=== PATIENT | female | born 1955 | race Caucasian/White ===

== ENCOUNTER 2023-03-07 11:06 | Emergency (ER) | payer MEDICARE, SELFPAY ==
[2023-03-07] VITALS (15 sets, daily range): BP systolic 149–209; BP diastolic 70–93; PULSE 64–78; RESP 7–31; TEMP 37.1; O2SAT 92–99; BMI 22.3
--- NOTE | 2023-03-07 11:10 | DI.US.S_ITS ---
PROCEDURE: US PERIPH VENOUS LOW EXTREM LT INDICATIONS: PAIN TECHNIQUE: Real-time imaging, as well as color and pulse Doppler interrogation, were performed of the lower extremity deep veins from the inguinal ligament to the popliteal fossa, with documentation of the visualized calf veins. COMPARISON: [facility], US, US VENOUS LOWER EXTREMITY DOPPLER LEFT, 04/11/2020, 17:54. FINDINGS: The common femoral, femoral, popliteal, and the visualized calf veins are normally compressible, and free of intraluminal thrombus. Color and pulse Doppler demonstrate normal phasic intraluminal flow. There is normal augmentation response to distal compression maneuver. Trace soft tissue edema can be seen involving the medial ankle. IMPRESSION: No findings of lower extremity deep venous thrombosis. Dictated by: Artemio Whiting M.D. on 03/07/2023 at 12:06 Approved by: Artemio Whiting M.D. on 03/07/2023 at 12:07
--- NOTE | 2023-03-07 12:01 | ED.EXTPRO ---
HPI - Extremity Problem <Rodney Saldaañ PA-C - Last Filed: 03/07/23 16:06> General Chief complaint: Extremity Problem,Nontraumatic Stated complaint: poss blood clot in L/foot Time Seen by Provider: 03/07/23 12:00 Source: patient Mode of arrival: Ambulatory History of Present Illness HPI Narrative: This is a 67-year-old female presents emergency department due to slightly increased pain and tightness of the left foot. She states she has ?no arterial blood flow? after 9 vascular surgeries with the last 1 being last year. She was not recall any acute injuries to the foot but did go to a walk-in clinic yesterday where they did an x-ray which showed no acute fractures. Patient does not take blood thinners. Denies any fevers, shortness of breath, chest pain, or other systemic symptoms. Related Data Home Medications Medication Instructions Recorded Confirmed chlorthalidone 25 mg tablet 25 mg PO DAILY 03/07/23 03/07/23 dextroamphetamine-amphetamine 10 1 tab PO BID 03/07/23 03/07/23 mg tablet gabapentin 600 mg tablet See Rx Instructions .Route .COMPLEX 03/07/23 03/07/23 hydrocodone 10 mg-acetaminophen 1 tab PO Q4H PRN severe pain 03/07/23 03/07/23 325 mg tablet levothyroxine 125 mcg tablet 125 mcg PO DAILY 03/07/23 03/07/23 Allergies Allergy/AdvReac Type Severity Reaction Status Date / Time Iodinated Contrast Media Allergy Anaphylaxis Verified 03/07/23 11:26 tomato Allergy Anaphylaxis Verified 03/07/23 11:26 Review of Systems <Rodney Saldaña PA-C - Last Filed: 03/07/23 16:06> Review of Systems Narrative: GENERAL: Denies chills, fatigue, malaise, fever, sweats. HEENT: Denies sinus pain, ear pain, sore throat, difficulty swallowing, dizziness. RESPIRATORY: Denies dyspnea, cough, wheezing, hemoptysis, sputum. CARDIOVASCULAR: Denies chest pain, palpitations, orthopnea, edema, GASTROINTESTINAL: Denies nausea, vomiting, abdominal pain, diarrhea, constipation, melena. : Denies dysuria, frequency, incontinence, hematuria, urinary retention. MUSCULOSKELETAL: Reports left foot pain, otherwise denies weakness, joint pain, or bony pain SKIN: Denies rash, skin lesions, or other NEUROLOGIC: Denies weakness, headache, numbness, change in speech, confusion, seizures, incoordination. PSYCHIATRIC: No concerning psychosocial issues. 12 point review of systems is negative except for those stated above Patient History <Rodney Saldaña PA-C - Last Filed: 03/07/23 16:06> Social History Smoking Status: Former smoker Smoking Status: Former smoker Substance Use Type: marijuana Exam <MILTON Romero Last Filed: 03/07/23 16:06> Narrative Exam Narrative: GENERAL: Well-developed patient, in mild distress. HEAD: Atraumatic. Normocephalic. EYES: Pupils equal round and reactive. Extraocular motions intact. No scleral icterus. No injection or drainage. ENT: Nose without bleeding, purulent drainage. Throat without erythema, tonsillar hypertrophy or exudate. Airway patent. NECK: Trachea midline. Non tender EXTREMITIES: Left foot is cool to the touch, palpable posterior tibialis pulse, unable to palpate dorsalis pedis pulse all as patient states that this is normal for her. Cap refill present although takes approximately 4 seconds. There does appear to be a small wound to the dorsal aspect of the foot with a small amount of purulent discharge BACK: Nontender without deformity or crepitance. No flank tenderness. NEURO: AOx3. SKIN: No rash or erythema of visible areas Initial Vital Signs Initial Vital Signs: Vital Signs Temperature 98.8 F 03/07/23 11:27 Pulse Rate 77 03/07/23 11:27 Respiratory Rate 17 03/07/23 11:27 Blood Pressure 194/86 H 03/07/23 11:27 Pulse Oximetry 97 03/07/23 11:27 Oxygen Delivery Method Room Air 03/07/23 11:27 <Cali Gordon DO - Last Filed: 03/07/23 16:09> Initial Vital Signs Initial Vital Signs: Vital Signs Temperature 98.8 F 03/07/23 11:27 Pulse Rate 77 03/07/23 11:27 Respiratory Rate 17 03/07/23 11:27 Blood Pressure 194/86 H 03/07/23 11:27 Pulse Oximetry 97 03/07/23 11:27 Oxygen Delivery Method Room Air 03/07/23 11:27 Course <Rodney Saldaña PA-C - Last Filed: 03/07/23 16:06> Orders Ordered: ED Orders 03/07/23 11:10 US periph venous low extrem lt Stat 03/07/23 12:27 US arterial duplex LE LT Stat 03/07/23 12:29 CT angio abd aorta runoff Stat 03/07/23 13:12 CBC Auto Diff [Complete Blood Count AUTO DIFF] Stat CMP [Comprehensive Metabolic Panel] Stat Discontinued Medications Chlorthalidone (Chlorthalidone 25 Mg Tablet) 25 mg PO NOW ONE Stop: 03/07/23 13:59 Last Admin: 03/07/23 14:25 Dose: 25 mg Documented By: BROCK Diphenhydramine HCl (Diphenhydramine 50 Mg/Ml Vial) 50 mg IV NOW ONE Stop: 03/07/23 13:04 Last Admin: 03/07/23 13:19 Dose: 50 mg Documented By: VALENTE Famotidine (Famotidine 20 Mg/2 Ml Vial) 20 mg IV NOW EDMUND Last Admin: 03/07/23 13:20 Dose: 20 mg Documented By: VALENTE Methylprednisolone (Methylprednisolone 125 Mg/2 Ml Vial) 125 mg IV NOW ONE Stop: 03/07/23 13:04 Last Admin: 03/07/23 13:19 Dose: 125 mg Documented By: VALENTE Reevaluation(s) Reevaluation #1: 1230: technical fellow stated that patient was negative for DVT. After arterial ultrasound she stated that the common femoral artery was occluded through the superficial femoral artery and distal. There was blood flow at the popliteal artery and posterior tibialis. Ask the patient about the findings and she stated that the common femoral artery occlusion was chronic for her. Vital Signs Vital signs: Vital Signs - 8 hr 03/07/23 11:27 03/07/23 12:21 03/07/23 12:23 Temperature 98.8 F Pulse Rate 77 69 Pulse Rate [Left Posterior Tibial] 70 Respiratory Rate 17 18 Blood Pressure 194/86 H 180/82 H Pulse Oximetry 97 97 Oxygen Delivery Method Room Air Room Air 03/07/23 12:33 03/07/23 13:00 03/07/23 13:01 Temperature Pulse Rate 67 72 71 Pulse Rate [Left Posterior Tibial] Respiratory Rate 20 31 H 24 Blood Pressure Pulse Oximetry 97 92 98 Oxygen Delivery Method 03/07/23 13:01 03/07/23 13:26 03/07/23 13:26 Temperature Pulse Rate 67 Pulse Rate [Left Posterior Tibial] Respiratory Rate 12 Blood Pressure 149/74 H 197/81 H Pulse Oximetry 98 Oxygen Delivery Method 03/07/23 13:27 03/07/23 13:27 03/07/23 13:30 Temperature Pulse Rate 66 66 Pulse Rate [Left Posterior Tibial] Respiratory Rate 7 L 12 Blood Pressure 203/90 H Pulse Oximetry 99 96 Oxygen Delivery Method 03/07/23 13:30 03/07/23 13:49 03/07/23 13:49 Temperature Pulse Rate 64 Pulse Rate [Left Posterior Tibial] Respiratory Rate 12 Blood Pressure 200/93 H 209/89 H Pulse Oximetry 97 Oxygen Delivery Method 03/07/23 14:23 03/07/23 14:25 03/07/23 14:25 Temperature Pulse Rate 72 70 Pulse Rate [Left Posterior Tibial] Respiratory Rate 23 20 Blood Pressure 195/89 H Pulse Oximetry 92 99 Oxygen Delivery Method 03/07/23 14:30 03/07/23 14:30 03/07/23 15:00 Temperature Pulse Rate 67 70 Pulse Rate [Left Posterior Tibial] Respiratory Rate 18 18 Blood Pressure 196/88 H 182/84 H Pulse Oximetry 98 98 Oxygen Delivery Method Room Air 03/07/23 15:00 03/07/23 15:30 Temperature Pulse Rate 71 78 Pulse Rate [Left Posterior Tibial] Respiratory Rate 20 18 Blood Pressure 180/70 H Pulse Oximetry 94 97 Oxygen Delivery Method Room Air <Cali Gordon DO - Last Filed: 03/07/23 16:09> Orders Ordered: ED Orders 03/07/23 11:10 US periph venous low extrem lt Stat 03/07/23 12:27 US arterial duplex LE LT Stat 03/07/23 12:29 CT angio abd aorta runoff Stat 03/07/23 13:12 CBC Auto Diff [Complete Blood Count AUTO DIFF] Stat CMP [Comprehensive Metabolic Panel] Stat Discontinued Medications Chlorthalidone (Chlorthalidone 25 Mg Tablet) 25 mg PO NOW ONE Stop: 03/07/23 13:59 Last Admin: 03/07/23 14:25 Dose: 25 mg Documented By: RL Diphenhydramine HCl (Diphenhydramine 50 Mg/Ml Vial) 50 mg IV NOW ONE Stop: 03/07/23 13:04 Last Admin: 03/07/23 13:19 Dose: 50 mg Documented By: KB Famotidine (Famotidine 20 Mg/2 Ml Vial) 20 mg IV NOW EDMUND Last Admin: 03/07/23 13:20 Dose: 20 mg Documented By: VALENTE Methylprednisolone (Methylprednisolone 125 Mg/2 Ml Vial) 125 mg IV NOW ONE Stop: 03/07/23 13:04 Last Admin: 03/07/23 13:19 Dose: 125 mg Documented By: VALENTE Vital Signs Vital signs: Vital Signs - 8 hr 03/07/23 11:27 03/07/23 12:21 03/07/23 12:23 Temperature 98.8 F Pulse Rate 77 69 Pulse Rate [Left Posterior Tibial] 70 Respiratory Rate 17 18 Blood Pressure 194/86 H 180/82 H Pulse Oximetry 97 97 Oxygen Delivery Method Room Air Room Air 03/07/23 12:33 03/07/23 13:00 03/07/23 13:01 Temperature Pulse Rate 67 72 71 Pulse Rate [Left Posterior Tibial] Respiratory Rate 20 31 H 24 Blood Pressure Pulse Oximetry 97 92 98 Oxygen Delivery Method 03/07/23 13:01 03/07/23 13:26 03/07/23 13:26 Temperature Pulse Rate 67 Pulse Rate [Left Posterior Tibial] Respiratory Rate 12 Blood Pressure 149/74 H 197/81 H Pulse Oximetry 98 Oxygen Delivery Method 03/07/23 13:27 03/07/23 13:27 03/07/23 13:30 Temperature Pulse Rate 66 66 Pulse Rate [Left Posterior Tibial] Respiratory Rate 7 L 12 Blood Pressure 203/90 H Pulse Oximetry 99 96 Oxygen Delivery Method 03/07/23 13:30 03/07/23 13:49 03/07/23 13:49 Temperature Pulse Rate 64 Pulse Rate [Left Posterior Tibial] Respiratory Rate 12 Blood Pressure 200/93 H 209/89 H Pulse Oximetry 97 Oxygen Delivery Method 03/07/23 14:23 03/07/23 14:25 03/07/23 14:25 Temperature Pulse Rate 72 70 Pulse Rate [Left Posterior Tibial] Respiratory Rate 23 20 Blood Pressure 195/89 H Pulse Oximetry 92 99 Oxygen Delivery Method 03/07/23 14:30 03/07/23 14:30 03/07/23 15:00 Temperature Pulse Rate 67 70 Pulse Rate [Left Posterior Tibial] Respiratory Rate 18 18 Blood Pressure 196/88 H 182/84 H Pulse Oximetry 98 98 Oxygen Delivery Method Room Air 03/07/23 15:00 03/07/23 15:30 Temperature Pulse Rate 71 78 Pulse Rate [Left Posterior Tibial] Respiratory Rate 20 18 Blood Pressure 180/70 H Pulse Oximetry 94 97 Oxygen Delivery Method Room Air MDM - Extremity (Nontraumatic) <Rodney Saldaña PA-C - Last Filed: 03/07/23 16:06> Lab Data 03/07/23 13:12 03/07/23 13:12 Labs: Lab Results 03/07/23 Range/Units 13:12 WBC 9.2 (4.5-11.0) X10^3/uL RBC 4.66 (4.0-5.2) X10^6/uL Hgb 15.3 (12.0-16.0) g/dL Hct 44.3 (36-46) % MCV 95.0 (80-100) fL MCH 32.7 (26-34) PG MCHC 34.5 (30-36) % RDW 12.8 (11.6-14.8) % Plt Count 175 (150-400) X10^3/uL Neut % (Auto) 73.8 (50-75) % Lymph % (Auto) 18.1 L (25-40) % [place] % (Auto) 5.9 (3-14) % Eos % (Auto) 1.7 L (2-4) % Baso % (Auto) 0.5 (0-2) % Neut # (Auto) 6800 (4253-2203) /uL Lymph # (Auto) 1700 (3190-0654) /uL [place] # (Auto) 500 (0-900) /uL Eos # (Auto) 200 (0-450) /uL Baso # (Auto) 0 (0-100) /uL Plt Morphology Comment RBC Morphology Normal morphology Sodium 140 (137-145) mmol/L Potassium 3.6 (3.4-5.1) mmol/L Chloride 99 (98-107) mmol/L Carbon Dioxide 32 (22-32) mmol/L BUN 17 (7-17) mg/dL Creatinine 0.99 (0.52-1.04) mg/dL Estimated GFR > 60 (>60) mL/min BUN/Creatinine Ratio 17.2 (6-22) Glucose 116 H (80-110) mg/dL Calcium 10.2 (8.4-10.2) mg/dL Total Bilirubin 0.4 (0.2-1.3) mg/dL AST 24 (14-36) IU/L ALT 18 (<35) IU/L Alkaline Phosphatase 103 (38-126) U/L Total Protein 8.4 H (6.3-8.2) g/dL Albumin 4.4 (3.5-5.0) g/dL Globulin 4.0 (1.7-4.1) g/dL Albumin/Globulin Ratio 1.1 (1.0-2.8) Imaging Data US - DVT: Radiologist's Impression: [address] [address] Ultrasound Report Signed Patient: Rebecca Valenzuela MR#: [id number] : 1955 Acct:[id number] Age/Sex: 67 / F Date of Service: 03/07/23 Loc: ED Accession Number: [id number] Procedure: US periph venous low extrem lt Ordering Provider: Cali Gordon D.O. PROCEDURE: US PERIPH VENOUS LOW EXTREM LT INDICATIONS: PAIN TECHNIQUE: Real-time imaging, as well as color and pulse Doppler interrogation, were performed of the lower extremity deep veins from the inguinal ligament to the popliteal fossa, with documentation of the visualized calf veins. COMPARISON: [facility], , US VENOUS LOWER EXTREMITY DOPPLER LEFT, 04/11/2020, 17:54. FINDINGS: The common femoral, femoral, popliteal, and the visualized calf veins are normally compressible, and free of intraluminal thrombus. Color and pulse Doppler demonstrate normal phasic intraluminal flow. There is normal augmentation response to distal compression maneuver. Trace soft tissue edema can be seen involving the medial ankle. IMPRESSION: No findings of lower extremity deep venous thrombosis. Dictated by: Artemio Whiting M.D. on 03/07/2023 at 12:06 Approved by: Artemio Whiting M.D. on 03/07/2023 at 12:07 US LE Arterial: Radiologist's Impression: [address] [address] Ultrasound Report Signed Patient: Rebecca Valenzuela MR#: [id number] : 1955 Acct:[id number] Age/Sex: 67 / F Date of Service: 03/07/23 Loc: ED Accession Number: [id number] Procedure: US arterial duplex LE LT Ordering Provider: Rodney Saldaña P.A-C PROCEDURE: US ARTERIAL DUPLEX LE LT INDICATIONS: DECREASED PULSES IN FOOT. TECHNIQUE: Color and pulse Doppler interrogation was performed of the left lower extremity arterial system, with image documentation. COMPARISON: [facility], , US PERIPH VENOUS LOW EXTREM LT, 03/07/2023, 12:16. [facility], , US ARTERIAL LOWER EXTREMITY DOPPLER LEFT, 04/11/2020, 18:07. FINDINGS: Common femoral artery: No flow is seen Deep femoral artery: 41 cm/sec, with monophasic flow. No flow seen throughout the superficial femoral artery. Proximal popliteal artery: 177 cm/sec, with monophasic flow. No flow seen within the distal popliteal artery. Posterior tibial artery: 10 cm/sec, with monophasic flow. Anterior tibial artery/dorsalis pedis: 17 cm/sec, with monophasic flow. Zepeda-scale imaging description: Prominent atherosclerotic change is seen. IMPRESSION: Significant vascular compromise of the left lower extremity, with no flow seen within the common femoral artery, within the superficial femoral artery or within the distal popliteal artery. There is a small amount of flow seen within the profundus femoris artery, as well as within the posterior tibial artery and anterior tibial artery. Please consider interventional radiology consultation. Dictated by: Artemio Whiting M.D. on 03/07/2023 at 12:16 Approved by: Artemio Whiting M.D. on 03/07/2023 at 12:21 CT scan - abdomen/pelvis: Radiologist's Impression: [place] [address] CT Scan Report Signed Patient: Rebecca Valenzuela MR#: [id number] : 1955 Acct:[id number] Age/Sex: 67 / F Date of Service: 03/07/23 Loc: ED Accession Number: [id number] Procedure: CT angio abd aorta runoff Ordering Provider: Rodney Saldaña P.A-C PROCEDURE: CT ANGIO ABD AORTA RUNOFF INDICATIONS: Decreased blood flow to LLE, hx of vascular surgeries TECHNIQUE: After the administration of intravenous contrast, 2.5 mm sections acquired from T12 to the feet, with optional delayed image acquisition from the knees to the feet. 3-dimensional maximum intensity projection (MIP) coronal and sagittal reformats, and/or 3-dimensional volume rendering reformatting was then performed. For radiation dose reduction, the following was used: automated exposure control. The patient was pre-medicated prior to this study. No immediate contrast reaction was experienced. COMPARISON: [facility], [place], US PERIPH VENOUS LOW EXTREM LT, 03/07/2023, 12:16. [facility], [place], US ARTERIAL LOWER EXTREMITY DOPPLER LEFT, 04/11/2020, 18:07. [facility], [place], US ARTERIAL DUPLEX LE LT, 03/07/2023, 12:29. FINDINGS: Image quality: There is artifact associated with the metallic hardware. Extravascular tissues: Lung bases are clear. Heart size is normal. A small hiatal hernia is incidentally noted. Liver is normal in size and enhancement. Gallbladder wall is not thickened. Common bile duct is mildly dilated at 11 mm. . Pancreas enhances normally. Spleen is normal in size and enhancement. No adrenal nodules. Kidneys are normal in size and enhancement, without hydronephrosis. Non opacified bowel loops demonstrate normal wall thickness and enhancement. No free fluid or air. No retroperitoneal or mesenteric adenopathy. No ventral hernias. This patient is status post hysterectomy. No adnexal masses are seen. Bladder wall thickness is normal. No inguinal hernias or adenopathy. No suspicious bony lesions. No vertebral body compression fractures. Left knee arthroplasty hardware is seen. Abdominal aorta: The aorta demonstrates atherosclerotic irregularity, with calcified and soft plaque seen. The distal aorta demonstrates irregular narrowing, with approximately 40% stenosis. Right lower extremity: There is approximately 50% narrowing involving the right proximal common iliac artery. Additional approximately 50% narrowing is seen involving the right mid common iliac artery. Likely 70% stenosis seen involving the proximal right internal iliac artery. The right external iliac artery demonstrates generalized small caliber, with a focus of 70% narrowing within its midportion. The right common femoral artery demonstrates small caliber. The right superficial femoral artery is occluded at its origin. The right profunda femorals artery is patent. Within the distal superficial femoral artery, there is partial reconstitution. Flow seen within the right popliteal artery. There is flow seen at the distal aspects of the right anterior tibial and right posterior tibial arteries. No flow seen within the distal right peroneal artery. Left lower extremity: There is approximately 60% narrowing involving the left proximal common iliac artery. There is at least 70% narrowing involving the left proximal iliac artery. The left external iliac artery demonstrates generalized low caliber, with approximately 80% narrowing distally. The left common femoral artery is occluded. Postoperative change is seen, with an apparent included femoral popliteal graft. No flow seen within the left superficial femoral artery. The left profunda femoris artery is patent. Evaluation of the popliteal artery is limited by streak artifact from the adjacent near the plasty hardware. The proximal popliteal artery appears occluded, with distal popliteal artery reconstitution. Evaluation of the distal left arteries is limited by flow within collaterals forces venous flow. IMPRESSION: Extensive left-sided arterial disease can be seen, with occlusion of the left common femoral artery and the left superficial femoral artery as well as the proximal aspect of left popliteal artery. Multifocal left iliac narrowing can be seen. There is an apparent occluded left femoral-popliteal graft. Aortic irregularity, with approximately 40% narrowing distally. Multifocal iliac system can be seen on the right. The majority of the right superficial femoral artery is occluded, with dorsal reconstitution. 2 vessel runoff is seen on the right. Please consider interventional radiology consultation. Mildly dilated common bile duct at 11 mm. Normal appearing gallbladder. - If clinically appropriate, an MRCP could be considered for further evaluation (assuming that there is no contraindication to MRI). Additional findings: Small hiatal hernia Hysterectomy Left knee arthroplasty hardware Dictated by: Artemio Whiting M.D. on 03/07/2023 at 13:27 Approved by: Artemio Whiting M.D. on 03/07/2023 at 13:38 MDM Narrative Medical decision making narrative: MDM * differential diagnosis includes but not limited to acute ischemic limb, peripheral arterial disease, DVT, cellulitis, foot fracture * Prior records reviewed: Patient has not been to this emergency department in the past * My lab interpretation: CBC and CMP unremarkable. No evidence of acute anemia or leukocytosis. * My imgaing interpretation: CT findings as above with significant vascular compromise to the left lower extremity although appears to be chronic for the patient. CT also showed the majority of the right superficial femoral artery being occluded with dorsal reconstitution. Patient denies any symptoms in the right lower extremity and had palpable pulses. Also stated that there was a mildly dilated common bile duct patient had no abdominal symptoms. No acute findings. Negative for DVT * Clinical Decision Rules/Scores evaluated: None * Independent discussions with: None ED Course: This is a 67-year-old female with a extensive history of peripheral arterial disease presenting to the emergency department due to worsening pain in the left foot. Patient was seen at a walk-in clinic yesterday and had a negative foot x-ray. Patient is not describe the pain being exquisitely out of proportion just states that it has been getting ?a little worse?. Patient has an extensive history of purulent for oral arterial disease in the left undergoing an reported [address] Diamond at vascular. Maintenance ultrasound was negative for DVT. Arterial ultrasound showed the chronic findings that were mentioned above as well as CTA which confirmed this. Patient's finding was discussed with Dr. Diamond's offices on-call provider who recommended close follow-up and reinforced the importance that she takes her aspirin which the patient states that she is been taking intermittently. Patient did not present with any findings that would necessitate an emergent intervention and she will follow up with Dr. Diamond's office for long-term management. There were no open wounds or evidence of infection to the foot low concern for any kind of soft tissue infection. Shared Decision Making: Discussed plan with patient who is comfortable with the plan. Social Considerations: None Disposition: Discharged to home <Cali oGrdon, - Last Filed: 03/07/23 16:09> Lab Data Labs: Lab Results 03/07/23 Range/Units 13:12 WBC 9.2 (4.5-11.0) X10^3/uL RBC 4.66 (4.0-5.2) X10^6/uL Hgb 15.3 (12.0-16.0) g/dL Hct 44.3 (36-46) % MCV 95.0 (80-100) fL MCH 32.7 (26-34) PG MCHC 34.5 (30-36) % RDW 12.8 (11.6-14.8) % Plt Count 175 (150-400) X10^3/uL Neut % (Auto) 73.8 (50-75) % Lymph % (Auto) 18.1 L (25-40) % [place] % (Auto) 5.9 (3-14) % Eos % (Auto) 1.7 L (2-4) % Baso % (Auto) 0.5 (0-2) % Neut # (Auto) 6800 (5313-5732) /uL Lymph # (Auto) 1700 (1818-3924) /uL [place] # (Auto) 500 (0-900) /uL Eos # (Auto) 200 (0-450) /uL Baso # (Auto) 0 (0-100) /uL Plt Morphology Comment RBC Morphology Normal morphology Sodium 140 (137-145) mmol/L Potassium 3.6 (3.4-5.1) mmol/L Chloride 99 (98-107) mmol/L Carbon Dioxide 32 (22-32) mmol/L BUN 17 (7-17) mg/dL Creatinine 0.99 (0.52-1.04) mg/dL Estimated GFR > 60 (>60) mL/min BUN/Creatinine Ratio 17.2 (6-22) Glucose 116 H (80-110) mg/dL Calcium 10.2 (8.4-10.2) mg/dL Total Bilirubin 0.4 (0.2-1.3) mg/dL AST 24 (14-36) IU/L ALT 18 (<35) IU/L Alkaline Phosphatase 103 (38-126) U/L Total Protein 8.4 H (6.3-8.2) g/dL Albumin 4.4 (3.5-5.0) g/dL Globulin 4.0 (1.7-4.1) g/dL Albumin/Globulin Ratio 1.1 (1.0-2.8) Discharge Plan Departure Patient Disposition: Home Clinical Impression: PAD (peripheral artery disease) Activity Restrictions/Additional Instructions: Thank you for coming to the [facility] Emergency Department today. The imaging that we took today was discussed with Dr. Diamond's office. Please call his office on Thursday to arrange for an urgent appointment to be seen and re-evaluated. I strongly recommend you continue taking the aspirin that you have been prescribed. I hope you feel better soon. Please follow up with your primary care provider within a week if your symptoms continue. If you do not have a primary care provider please contact the [facility] Resource line at [phone]. They will ask some questions about your medical history and help you get set up with a provider in the community. Prescriptions: No Action gabapentin 600 mg tablet See Rx Instructions .ROUTE .COMPLEX Rx Instructions: TAKE 1.5 TABLETS BY MOUTH EVERY MORNING, 1 TABLET EVERY AFTERNOON, AND 1.5 TABLETS AT BEDTIME DAILY DOSE CHANGE 09/23/22 NOTE THESE ARE 600MG TABLETS dextroamphetamine-amphetamine 10 mg tablet 1 tab PO BID chlorthalidone 25 mg tablet 25 mg PO DAILY hydrocodone-acetaminophen 10-325 mg tablet 1 tab PO Q4H PRN (Reason: severe pain) levothyroxine 125 mcg tablet 125 mcg PO DAILY Referrals: Khadijah Watts MD [Primary Care Provider] - Stand Alone Forms: Patient Portal/API ED Sign-out <Cali Gordon DO - Last Filed: 03/07/23 16:09> Cosign ED Attending Brigetteature Attestation: I was immediately available in the department for consultation. Documentation has been reviewed. I agree with assessment and plan.
--- NOTE | 2023-03-07 12:27 | DI.US.S_ITS ---
PROCEDURE: US ARTERIAL DUPLEX LE LT INDICATIONS: DECREASED PULSES IN FOOT. TECHNIQUE: Color and pulse Doppler interrogation was performed of the left lower extremity arterial system, with image documentation. COMPARISON: [facility], US, US PERIPH VENOUS LOW EXTREM LT, 03/07/2023, 12:16. [facility], , US ARTERIAL LOWER EXTREMITY DOPPLER LEFT, 04/11/2020, 18:07. FINDINGS: Common femoral artery: No flow is seen Deep femoral artery: 41 cm/sec, with monophasic flow. No flow seen throughout the superficial femoral artery. Proximal popliteal artery: 177 cm/sec, with monophasic flow. No flow seen within the distal popliteal artery. Posterior tibial artery: 10 cm/sec, with monophasic flow. Anterior tibial artery/dorsalis pedis: 17 cm/sec, with monophasic flow. Zepeda-scale imaging description: Prominent atherosclerotic change is seen. IMPRESSION: Significant vascular compromise of the left lower extremity, with no flow seen within the common femoral artery, within the superficial femoral artery or within the distal popliteal artery. There is a small amount of flow seen within the profundus femoris artery, as well as within the posterior tibial artery and anterior tibial artery. Please consider interventional radiology consultation. Dictated by: Artemio Whiting M.D. on 03/07/2023 at 12:16 Approved by: Artemio Whiting M.D. on 03/07/2023 at 12:21
--- NOTE | 2023-03-07 12:29 | DI.CT.S_ITS ---
PROCEDURE: CT ANGIO ABD AORTA RUNOFF INDICATIONS: Decreased blood flow to LLE, hx of vascular surgeries TECHNIQUE: After the administration of intravenous contrast, 2.5 mm sections acquired from T12 to the feet, with optional delayed image acquisition from the knees to the feet. 3-dimensional maximum intensity projection (MIP) coronal and sagittal reformats, and/or 3-dimensional volume rendering reformatting was then performed. For radiation dose reduction, the following was used: automated exposure control. The patient was pre-medicated prior to this study. No immediate contrast reaction was experienced. COMPARISON: [facility], US, US PERIPH VENOUS LOW EXTREM LT, 03/07/2023, 12:16. [facility], US, US ARTERIAL LOWER EXTREMITY DOPPLER LEFT, 04/11/2020, 18:07. [facility], US, US ARTERIAL DUPLEX LE LT, 03/07/2023, 12:29. FINDINGS: Image quality: There is artifact associated with the metallic hardware. Extravascular tissues: Lung bases are clear. Heart size is normal. A small hiatal hernia is incidentally noted. Liver is normal in size and enhancement. Gallbladder wall is not thickened. Common bile duct is mildly dilated at 11 mm. . Pancreas enhances normally. Spleen is normal in size and enhancement. No adrenal nodules. Kidneys are normal in size and enhancement, without hydronephrosis. Non opacified bowel loops demonstrate normal wall thickness and enhancement. No free fluid or air. No retroperitoneal or mesenteric adenopathy. No ventral hernias. This patient is status post hysterectomy. No adnexal masses are seen. Bladder wall thickness is normal. No inguinal hernias or adenopathy. No suspicious bony lesions. No vertebral body compression fractures. Left knee arthroplasty hardware is seen. Abdominal aorta: The aorta demonstrates atherosclerotic irregularity, with calcified and soft plaque seen. The distal aorta demonstrates irregular narrowing, with approximately 40% stenosis. Right lower extremity: There is approximately 50% narrowing involving the right proximal common iliac artery. Additional approximately 50% narrowing is seen involving the right mid common iliac artery. Likely 70% stenosis seen involving the proximal right internal iliac artery. The right external iliac artery demonstrates generalized small caliber, with a focus of 70% narrowing within its midportion. The right common femoral artery demonstrates small caliber. The right superficial femoral artery is occluded at its origin. The right profunda femorals artery is patent. Within the distal superficial femoral artery, there is partial reconstitution. Flow seen within the right popliteal artery. There is flow seen at the distal aspects of the right anterior tibial and right posterior tibial arteries. No flow seen within the distal right peroneal artery. Left lower extremity: There is approximately 60% narrowing involving the left proximal common iliac artery. There is at least 70% narrowing involving the left proximal iliac artery. The left external iliac artery demonstrates generalized low caliber, with approximately 80% narrowing distally. The left common femoral artery is occluded. Postoperative change is seen, with an apparent included femoral popliteal graft. No flow seen within the left superficial femoral artery. The left profunda femoris artery is patent. Evaluation of the popliteal artery is limited by streak artifact from the adjacent near the plasty hardware. The proximal popliteal artery appears occluded, with distal popliteal artery reconstitution. Evaluation of the distal left arteries is limited by flow within collaterals forces venous flow. IMPRESSION: Extensive left-sided arterial disease can be seen, with occlusion of the left common femoral artery and the left superficial femoral artery as well as the proximal aspect of left popliteal artery. Multifocal left iliac narrowing can be seen. There is an apparent occluded left femoral-popliteal graft. Aortic irregularity, with approximately 40% narrowing distally. Multifocal iliac system can be seen on the right. The majority of the right superficial femoral artery is occluded, with dorsal reconstitution. 2 vessel runoff is seen on the right. Please consider interventional radiology consultation. Mildly dilated common bile duct at 11 mm. Normal appearing gallbladder. - If clinically appropriate, an MRCP could be considered for further evaluation (assuming that there is no contraindication to MRI). Additional findings: Small hiatal hernia Hysterectomy Left knee arthroplasty hardware Dictated by: Artemio Whiting M.D. on 03/07/2023 at 13:27 Approved by: Artemio Whiting M.D. on 03/07/2023 at 13:38
[2023-03-07] MEDS: diphenhydrAMINE 50 MG/ML VIAL IV (13:19)
[2023-03-07] MEDS: methylPREDNISolone 125 MG/2 ML VIAL IV (13:19)
[2023-03-07] MEDS: FAMOTIDINE 20 MG/2 ML VIAL IV (13:20)
--- NOTE | 2023-03-07 13:27 | PC.NURSE ---
Pt pre-medicated for CT contrast.
[2023-03-07 13:39] LABS: Neutrophils Absolute Auto 6800 /uL (1500-7000); White Blood Cell Count 9.2 X10^3/uL (4.5-11.0)
[2023-03-07 14:08] LABS: Add Manual Diff / Slide Review SLIDE REVIEW; Basophils Absolute Auto 0 /uL (0-100); Basophils Percent Auto 0.5 % (0-2); Eosinophils Absolute Auto 200 /uL (0-450); Eosinophils Percent Auto 1.7 % (2-4); Hematocrit 44.3 % (36-46); Hemoglobin 15.3 g/dL (12.0-16.0); Lymphocytes Absolute Auto 1700 /uL (1100-4500); Lymphocytes Percent Auto 18.1 % (25-40); Mean Corpuscular HGB Conc 34.5 % (30-36); Mean Corpuscular Hemoglobin 32.7 PG (26-34); Monocytes Absolute Auto 500 /uL (0-900); Monocytes Percent Auto 5.9 % (3-14); Neutrophils Percent Auto 73.8 % (50-75); Platelet Count 175 X10^3/uL (150-400); Red Blood Cell Count 4.66 X10^6/uL (4.0-5.2); Red Cell Distribution Width 12.8 % (11.6-14.8)
[2023-03-07 14:14] LABS: Alanine Aminotransferase 18 IU/L (<35); Albumin 4.4 g/dL (3.5-5.0); Albumin Globulin Ratio 1.1 (1.0-2.8); Alkaline Phosphatase 103 U/L (38-126); Aspartate Aminotransferase 24 IU/L (14-36); BUN Creatinine Ratio 17.2 (6-22); Bilirubin Total 0.4 mg/dL (0.2-1.3); Blood Urea Nitrogen 17 mg/dL (7-17); Calcium 10.2 mg/dL (8.4-10.2); Carbon Dioxide 32 mmol/L (22-32); Chloride 99 mmol/L (98-107); Estimated Glomerular Filt Rate > 60 mL/min (>60); Glucose 116 mg/dL (80-110); HEMOLYSIS < 15 (0-50); Sodium 140 mmol/L (137-145); Total Protein 8.4 g/dL (6.3-8.2)
[2023-03-07 14:15] LABS: Potassium 3.6 mmol/L (3.4-5.1)
--- NOTE | 2023-03-07 14:22 | PC.NURSE ---
Pt states that she had to go to the bathroom and CT staff would not let her. Discussed that the contrast can make you feel as if you are going to the bathroom. She stated this was not the case. Assisted to the bathroom, where she was noted to have dry under clothes.
[2023-03-07] MEDS: CHLORTHALIDONE 25 MG TABLET PO (14:25)
[2023-03-07 14:28] LABS: RBC Morphology Normal Morphology
== END 2023-03-07 15:40 | disposition home or self-care (01) ==
PROVIDERS: Emergency Provider Physician Assistant Medical; PCP Family Medicine
DX: I73.9 Peripheral vascular disease, unspecified (principal)
CPT/HCPCS: 36415; 75635; 80053; 85025; 93926; 93971; 96374; 96375; 99284; J1200; J2930; Q9967